=== PATIENT | female | born 1945 | race African-American/Black ===

== ENCOUNTER 2025-01-20 15:16 | Emergency (ER) | payer MEDICAID ==
[~2025-01-20] VITALS: Ht 172.7 cm; Wt 100.0 kg
[2025-01-20 15:22] VITALS: O2SAT 98
[2025-01-20] MEDS: ACETAMINOPHEN 500MG TABLET PO ONE (17:15)
[2025-01-20 17:32] LABS: HEMATOCRIT. 43.4 % (36.0-48.0); HEMOGLOBIN. 14.6 g/dL (12.0-16.0); MEAN PLATELET VOLUME 8.8 fl (7.4-10.4); PLATELET 205 x1000/uL (130-400); RED BLOOD CELL COUNT 4.63 mill/uL (4.2-5.4); RED CELL DISTRIBUTION WIDTH 15.3 % (11.6-14.6)
[2025-01-20 17:46] LABS: CREATININE 1.0 mg/dL (0.6-1.0); UREA NITROGEN BLOOD 11 mg/dL (9-23)
[2025-01-20 17:48] LABS: ASPARTATE AMINOTRANSFERASE 17 IU/L (<34); BILIRUBIN DIRECT 0.2 mg/dL (<=3.0); BILIRUBIN TOTAL 1.0 mg/dL (0.1-1.0); PROTEIN TOTAL 7.1 g/dL (6.0-8.3)
[2025-01-20 18:26] LABS: EOSINOPHILS % MANUAL 2.0 % (0.0-5.0); LYMPHOCYTES % MANUAL 69.0 % (20.0-60.0); MONOCYTES % MANUAL 7.0 % (2.0-8.0); NEUTROPHILS % MANUAL 22.0 % (45.0-75.0); PLATELET ESTIMATE NORMAL
[2025-01-20] MEDS ORDERED: TOPUD MT (19:29)
[2025-01-20] MEDS ORDERED: SULF1TAB48 MT (19:29)
[2025-01-20 19:50] VITALS: BP 173/87; PULSE 68; RESP 17; TEMP 36.6; O2SAT 98
[2025-01-20] MEDS ORDERED: IOHEXOL-300 100 ML BOTTLE ONE (22:46)
== END 2025-01-20 19:54 | disposition home or self-care (01) ==
LOC: ER 15:32
DX: L02.11 Cutaneous abscess of neck (principal); R50.9 Fever, unspecified; I10 Essential (primary) hypertension; E11.9 Type 2 diabetes mellitus without complications
CPT/HCPCS: 99285; 70491; 80076; 80048; 85025; 36415; Q9967